=== PATIENT | female | born 1935 | race Caucasian/White ===

== ENCOUNTER 2018-08-13 06:05 | Emergency (ER) | payer MEDICARE, OTHER ==
[2018-08-13 06:14] VITALS: BP 159/95
--- NOTE | 2018-08-13 06:34 | ER Document Report ---
ED General - General Chief Complaint: Urinary Frequency Stated Complaint: BLADDER CONCERNS Time Seen by Provider: 08/13/18 06:21 Mode of Arrival: Ambulatory Information source: Patient TRAVEL OUTSIDE OF THE [place] IN LAST 30 DAYS: No - HPI Patient complains to provider of: urinary urgency Onset: Other - urinary urgency following a catheter placed for a cardiac ablation after which it was noticed that the James catheter had kinked with a prominent amount of output thereafter. Since 2 days ago she has now had urgency and some dysuria associated with her urination. Denies fevers, denies chills denies back pain denies abdominal pain denies diarrhea constipation shortness of breath chest pain lightheadedness or other symptoms. She does not take anything to try and help with this has not had anything like this in an extended period of time. - Related Data Allergies/Adverse Reactions: BLUE Inhibitors [Blue Inhibitors] Allergy (Severe, Verified 02/01/15 08:28) Angioneurotic Edema ibuprofen [Ibuprofen] Allergy (Mild, Verified 10/05/12 09:45) ADHESIVE TAPE Adverse Reaction (Severe, Uncoded 01/20/12 14:30) Skin Redness Past Medical History - General Information source: Patient - Social History Smoking Status: Unknown if Ever Smoked Family History: Hypertension Patient has suicidal ideation: No Patient has homicidal ideation: No - Past Medical History Cardiac Medical History: Reports: Hx Atrial Fibrillation, Hx Hypercholesterolemia, Hx Hypertension Denies: Hx Heart Attack Pulmonary Medical History: Denies: Hx Asthma Neurological Medical History: Denies: Hx Cerebrovascular Accident, Hx Seizures Endocrine Medical History: Reports: Hx Hypothyroidism Renal/ Medical History: Denies: Hx Peritoneal Dialysis GI Medical History: Reports: Hx Ulcer. Denies: Hx Hepatitis, Hx Hiatal Hernia Infectious Medical History: Denies: Hx Hepatitis Past Surgical History: Reports: Hx Appendectomy, Hx Section - x2, Hx Cholecystectomy, Hx Hysterectomy, Hx Orthopedic Surgery - Right total knee, Hx Thyroid Surgery - thyroidectomy pt has parathyroid. Denies: Hx Mastectomy, Hx Open Heart Surgery, Hx Pacemaker - Immunizations Hx Pneumococcal Vaccination: 08/23/09 Review of Systems - Review of Systems -: Yes All other systems reviewed and negative Physical Exam - Vital signs Vitals: Temp Pulse Resp BP Pulse Ox 97.7 F 68 18 159/95 H 98 08/13/18 06:06 08/13/18 06:06 08/13/18 06:06 08/13/18 06:06 08/13/18 06:06 Interpretation: Normal - General General appearance: Appears well, Alert - HEENT Head: Normocephalic, Atraumatic Eyes: Normal Pupils: PERRL - Respiratory Respiratory status: No respiratory distress Chest status: Nontender Breath sounds: Normal Chest palpation: Normal - Cardiovascular Rhythm: Regular Heart sounds: Normal auscultation Murmur: No - Abdominal Inspection: Normal Distension: No distension Bowel sounds: Normal Tenderness: Nontender Organomegaly: No organomegaly - Back Back: Normal, Nontender - Extremities General upper extremity: Normal inspection, Nontender, Normal color, Normal ROM, Normal temperature General lower extremity: Normal inspection, Nontender, Normal color, Normal ROM, Normal temperature, Normal weight bearing. No: Maricarmen's sign - Neurological Neuro grossly intact: Yes Cognition: Normal Orientation: AAOx4 [place] Coma Scale Eye Opening: Spontaneous [place] Coma Scale Verbal: Oriented [place] Coma Scale Motor: Obeys Commands [place] Coma Scale Total: 15 Speech: Normal Motor strength normal: LUE, RUE, LLE, RLE Sensory: Normal - Psychological Associated symptoms: Normal affect, Normal mood - Skin Skin Temperature: Warm Skin Moisture: Dry Skin Color: Normal Course - Re-evaluation Re-evalutation: 83-year-old female that presents after having a catheter placed during a cardiac ablation 2 days prior with dysuria and urgency. Otherwise has no secondary signs of infection or complaints at this time. Current plan will be there is patient undergo urinalysis will also send for urine culture. Urinalysis demonstrates pyuria, likely this patient has cystitis. Will treat with Keflex as she is on multiple blood pressure medications do not believe that Bactrim is an appropriate choice for her at this time. Patient to be discharged home with prescription for Keflex as well as Pyridium. She will return in case of worsening fevers. - Vital Signs Vital signs: Temp Pulse Resp BP Pulse Ox 97.7 F 68 18 159/95 H 98 08/13/18 06:06 08/13/18 06:06 08/13/18 06:06 08/13/18 06:06 08/13/18 06:06 - Laboratory Laboratory results interpreted by me: 08/13/18 06:30 Urine Blood MODERATE H Ur Leukocyte Esterase MODERATE H Discharge - Discharge Clinical Impression: Cystitis Urinary tract infection Qualifiers: Urinary tract infection type: site unspecified Hematuria presence: without hematuria Qualified Code(s): N39.0 - Urinary tract infection, site not specified Condition: Good Disposition: HOME, SELF-CARE Instructions: Cephalexin ([facility]), Urinary Anesthetic Agent ([facility]), Urinary Tract Infection ([facility]) Additional Instructions: You were seen today in the emergency department for your pain with urination and urgency. You had a physical exam as well as a urine test. Your urine test shows that you do have an infection in your bladder. You have been given an antibiotic, take the antibiotic 4 times daily as directed for the next week. You have also been given a medication to help numb your urine while you are taking it, it will turn your urine orange. This is normal. Return to emergency room in case you have any worsening fevers, chills, inability to eat or drink or worsening pain. Otherwise follow-up with your primary physician in the coming week for recheck. Prescriptions: Cephalexin Monohydrate [Keflex 500 mg Capsule] 500 mg PO Q6H 7 Days #28 capsule Phenazopyridine HCl [Pyridium] 100 mg PO DAILY #10 tablet Referrals: ALLISON ATKINSON MD [Primary Care Provider] - Follow up as needed
[2018-08-13 06:46] LABS: APPEARANCE,URINE CLEAR; BILIRUBIN,URINE NEGATIVE (NEGATIVE); COLOR,URINE STRAW; GLUCOSE, URINE NEGATIVE (NEGATIVE); KETONES,URINE NEGATIVE (NEGATIVE); LEUKOCYTE ESTERASE,URINE MODERATE (NEGATIVE); NITRITE,URINE NEGATIVE (NEGATIVE); PROTEIN,URINE NEGATIVE (NEGATIVE); URINE SPECIFIC GRAVITY 1.003; UROBILINOGEN,URINE NEGATIVE mg/dL (<2.0)
== END 2018-08-13 07:10 | disposition home or self-care (01) ==
LOC: ER 06:05
DX: N30.90 Cystitis, unspecified without hematuria (principal); I10 Essential (primary) hypertension; Z98.890 Other specified postprocedural states; Z79.899 Other long term (current) drug therapy; Z88.8 Allergy status to other drugs, medicaments and biological substances; Z88.6 Allergy status to analgesic agent
CPT/HCPCS: 81001; 87086; 99283